=== PATIENT | male | born 1985 | race Hispanic/Latino ===

== ENCOUNTER 2017-01-29 09:09 | Day surgery (SDC) | payer OTHER ==
[2017-01-29 11:12] VITALS: TEMP 98.2; O2SAT 100
[2017-01-29] MEDS ORDERED: Lactated Ringer's 500 ML IV ONE (11:52)
[2017-01-29 12:24] VITALS: BP 120/70; PULSE 79; RESP 14
== END 2017-01-29 13:49 | disposition home or self-care (01) ==
LOC: H.ENDO 09:09
PROVIDERS: ATTEND Internal Medicine Gastroenterology
DX: K30 Functional dyspepsia (principal); K29.50 Unspecified chronic gastritis without bleeding